=== PATIENT | male | born 1955 | race Caucasian/White ===

== ENCOUNTER 2019-04-04 18:31 | Emergency (ER) | payer OTHER, MEDICAID ==
[~2019-04-04] VITALS: Ht 172.7 cm; Wt 80.7 kg
[~2019-04-04 18:31] MED LIST: ASPIRIN PO; CLOP75TA28 PO; SIMVPOW2 PO
[2019-04-04] MEDS ORDERED: ALBUTEROL SULF 2.5 MG/0.5ML(0.5%) NEB SOLN NEB ONE (22:45)
[2019-04-04] MEDS ORDERED: IPRATROPIUM BROM 0.5 MG/2.5ML INH SOL NEB ONE (22:45)
[2019-04-04] MEDS ORDERED: methylPREDNISolone SOD SUCC 125 MG/2 ML VL IM ONE (23:15)
[2019-04-05] MEDS ORDERED: ONDANSETRON ODT 4 MG TAB PO ONE
[2019-04-05 00:28] VITALS: BP 125/84
== END 2019-04-05 00:29 | disposition home or self-care (01) ==
LOC: ER 18:31
DX: J20.9 Acute bronchitis, unspecified (principal); J06.9 Acute upper respiratory infection, unspecified; R11.2 Nausea with vomiting, unspecified; I50.9 Heart failure, unspecified; E78.5 Hyperlipidemia, unspecified; I25.2 Old myocardial infarction; F17.210 Nicotine dependence, cigarettes, uncomplicated; Z98.61 Coronary angioplasty status
CPT/HCPCS: 71046; 93005; 94640; 96372; 99284; J2930; J7644; Q0162